=== PATIENT | male | born 1970 | race Caucasian/White ===

== ENCOUNTER 2022-03-02 11:55 | Outpatient (CLI) | payer BC | END 2022-03-02 11:56 | disposition home or self-care (01) | LOC: CSHLAB 11:55 | PROVIDERS: ATTEND Internal Medicine Gastroenterology | DX: Z20.822 Contact with and (suspected) exposure to COVID-19 (principal); Z12.11 Encounter for screening for malignant neoplasm of colon | CPT/HCPCS: U0003; U0005 ==

== ENCOUNTER 2022-03-07 06:01 | Day surgery (SDC) | payer BC ==
[2022-03-03 11:36] VITALS: BMI 31.1
[2022-03-07] MEDS ORDERED: HYDROmorphone 0.5 MG/0.5 ML SYRINGE ONE (06:52)
[2022-03-07] MEDS ORDERED: Lidocaine 2% MPF 10 ML AMP (For Epidural Use) ONE (06:56)
[2022-03-07] MEDS ORDERED: PROPOFOL 40 ML ONE (06:56)
[2022-03-07] MEDS ORDERED: PROPOFOL 20 ML ONE (07:58)
== END 2022-03-07 08:43 | disposition home or self-care (01) ==
LOC: CSHSDC 06:01
PROVIDERS: ATTEND Internal Medicine Gastroenterology
PROC: 0DBM8ZX Excision of Descending Colon, Via Natural or Artificial Opening Endoscopic, Diagnostic (ICD-10-PCS; principal; 2022-03-07)
PROC: 0DBN8ZX Excision of Sigmoid Colon, Via Natural or Artificial Opening Endoscopic, Diagnostic (ICD-10-PCS; principal; 2022-03-07)
DX: Z12.11 Encounter for screening for malignant neoplasm of colon (principal); D12.4 Benign neoplasm of descending colon; D12.5 Benign neoplasm of sigmoid colon; K57.30 Diverticulosis of large intestine without perforation or abscess without bleeding; J30.2 Other seasonal allergic rhinitis; Z87.891 Personal history of nicotine dependence; Z80.0 Family history of malignant neoplasm of digestive organs; Z88.1 Allergy status to other antibiotic agents
CPT/HCPCS: 88305; J1170; J2704